=== PATIENT | female | born 1965 | race Caucasian/White ===

== ENCOUNTER → 2023-06-19 10:41 | Outpatient (REF) | payer OTHER, SELFPAY | LOC: HWRAD 10:41 | PROVIDERS: ATTENDING PHYSICIAN Internal Medicine Critical Care Medicine; FAMILY PHYSICIAN Internal Medicine | DX: Z87.891 Personal history of nicotine dependence (principal) | CPT/HCPCS: 71271 ==

== ENCOUNTER → 2023-07-21 11:54 | Outpatient (REF) | payer OTHER, SELFPAY | LOC: HWWDC 11:54 | PROVIDERS: ATTENDING PHYSICIAN Obstetrics & Gynecology; FAMILY PHYSICIAN Internal Medicine | DX: Z12.31 Encounter for screening mammogram for malignant neoplasm of breast (principal) | CPT/HCPCS: 77063; 77067 ==

== ENCOUNTER 2024-03-19 21:29 | Observation (INO) | payer OTHER, SELFPAY ==
[2024-03-19] VITALS (7 sets, daily range): BP systolic 123–175; BP diastolic 53–92; PULSE 64–73; BMI 21.7
--- NOTE | 2024-03-19 15:52 | ED.CVA ---
ED Provider Triage
<Sana Landin PA-C - Last Filed: 03/19/24 16:06>
-
Patient seen by provider in Triage?: Seen in Triage
A medical screening examination has been initiated by a qualified medical provider. Based on the assessment performed at this time, it has been determined that an emergent medical condition may exist and the patient has been informed that further
medical evaluation and possible additional diagnostic testing may be needed.
HPI: This is a medical evaluation conducted in person to initiate diagnostic evaluation and provide initial therapeutics. Please see further documentation by the treating clinician.
GENERAL: Alert , in no apparent distress
ENT: No visible abnormalities
LUNGS: No acute respiratory distress
NEUROLOGICAL: Alert and oriented, very slight flattening of left nasolabial fold on the left and a very subtle droop to the corner of her left mouth, normal sensation, other cranial nerves intact, strength and sensation intact, pronator drift
negative, visual rubio
Normal
SKIN: Skin intact. No visible changes.
MUSCULOSKELETAL: Moving extremities normally
PSYCH: Normal and appropriate interaction.
59 y/o F
h/o HTN
here with sudden episode of severe dizziness, double vision, ataxia, and 'massive headche' while in [employer] 1045 am
continued throughtout the day
went to bed
still had headache yesterday but it was mild
took tyenol
she has no vision changes today;
called her PCP who told her to come in
History of Present Illness
<Sana Landin PA-C - Last Filed: 03/19/24 16:06>
General
Chief Complaint: CVA/TIA Symptoms
Time Seen by Provider: 03/19/24 18:56
<Orlin Rider MD - Last Filed: 03/19/24 20:17>
General
Source: patient
Exam Limitations: none
Nursing documentation reviewed up to this point in time: agreed with
Onset of Stroke Symptoms
Onset of symptoms known: Yes
Date of onset of symptoms: 03/17/24
History of Present Illness
History of Present Illness:
59-year-old female with a past medical history of hypertension, hyperlipidemia, bipolar disorder who presents to the emergency department for evaluation after prolonged episode of dizziness, double vision and gait issues. Patient reports symptoms
started Monday at around 11 AM while she was at [employer]. She says she had sudden onset of diplopia, dizziness, unsteady gait and severe headache. She denies any loss of vision. She did not have any speech disturbance. Denies any weakness or
numbness in extremities. She says symptoms continued for about 6 hours and ultimately resolved in the late afternoon. She says that she called her primary doctor yesterday and she received a return call today saying that she should go immediately
to the ER for assessment. She says that today she feels fine and has no symptoms. There was a question of facial droop in triage patient has not noted facial droop or any other symptoms as above. She denies any chest pain or palpitations at any
point, denies shortness of breath. She denies having had similar symptoms in the past and is quite concerned that they might return in the future because of the severity.
Past History
<Sana Landin PA-C - Last Filed: 03/19/24 16:06>
Past History
ED Past Medical History: HTN, Hypercholesterolemia, Psychiatric (Anxiety, Depression) and Other (Chronic headaches, migraines, hemorrhoids, ovarian cysts, skin cancer, MRSA of the left toe from an infected ingrown toenail, depression)
ED Past Surgical History: (x 2) and Other (dermoid removal, endometrial ablation, hemorrhoidectomy, infected toenail removed)
Patient has exhibited threatening behavior?: No
Social History
Tobacco: Non-smoker
Alcohol: None
Drug: None
Personal:
Living: with family
Employment: Employed
Family History
Family History: Hypertension, CAD and Other (Father with valvular disease)
Review of Systems
<Orlin Gazak, MD - Last Filed: 03/19/24 20:17>
Review of Systems
All Other Systems: ROS reviewed and negative except as documented in HPI and ROS
Constitutional: Denies fever or chills
Respiratory: Denies cough or trouble breathing
Cardiac: Denies chest pain, palpitations or syncope
ABD/GI: Denies abdominal pain, nausea or vomiting
: Denies flank pain
Musculoskeletal: Denies neck pain or back pain
Neurological: Reports dizzy, headache and other (Visual disturbance, gait disturbance); Denies weakness or numbness
Phy Exam
<Orlin Rider MD - Last Filed: 03/19/24 20:17>
Physical Exam
Physical Exam:
General: Awake, alert, oriented x3; no acute distress
Head: Normocephalic, atraumatic
Eyes: Conjunctiva normal, EOMI, pupils equal round and reactive to light bilaterally
Throat: Airway intact, handling secretions
Neck: Trachea midline, supple without meningismus
Lungs: Clear to auscultation bilaterally, no wheezing, rales, rhonchi
Heart: Regular rate and rhythm, no murmurs, gallops, or rubs
Abd: Soft, non distended, nontender
Neuro: Cranial nerves intact 2 through 12, speech fluid with no dysarthria or aphasia, no limb ataxia, motor and sensory intact in all extremities
Extremities: No edema in extremities, equal pulses in all extremities
Scores
<Orlin Rider MD - Last Filed: 03/19/24 20:17>
NIH Stroke Score
Level of Consciousness: 0 - Alert
LOC Questions: 0-Answers both correctly
LOC Commands: 0-Performs both correctly
Best Horizontal Gaze: 0-Normal
Visual Rubio: 0=Normal, no visual loss
Facial Palsy: 0=Normal, symmetrical
Motor - Right Arm: 0=No drift 10 seconds
Motor - Left Arm: 0=No drift 10 seconds
Motor - Right Le-No drift 5 seconds
Motor - Left Le-No drift 5 seconds
Limb Ataxia: 0-Absent
Sensation: 0-Normal
Best Language: 0-No aphasia
Dysarthria: 0-Normal
Extinction and Inattention: 0-No abnormality
Total Score:: 0
Heart Failure Risk
Heart Failure Risk Score: Not Applicable
Heart Score for Chest Pain Patients
STEMI patient?: Not applicable
Withdrawal Assessment of Alcohol
Withdrawal Assessment Completed?: Not applicable
Course
<Sana Landin PA-C - Last Filed: 03/19/24 16:06>
Orders/Labs/Results
Orders:
Orders
03/19/24 15:53
CT Head & Neck Angio W/wo IV Urgent
Comment:
Reason For Exam: sudden double vision, severe headache 2 days ago,
03/19/24 16:06
Electrocardiogram (*1) Urgent
Reason for Study: TIA/Stroke
EKG- Treatment ONCE
03/19/24 16:10
Complete Blood Count/With Diff Urgent
Comprehensive Metabolic Panel Urgent
PTT Urgent
Prothrombin Time Urgent
Valproic Acid Level [Depakane] Urgent
03/19/24 20:11
NEUROLOGY CONSULT Urgent
Consulting Provider: Domonique Porter
Was physician already notified: Yes
Aspirin 325 mg PO NOW STA
Abnormal Lab Results
03/19/24
16:10
RBC 4.06 L 10^6/uL
(4.20-5.40)
Hct 36.7 L %
(37.0-47.0)
Immature Gran % 0.6 H %
(0-0.5)
Sodium 134 L mmol/L
(135-145)
Chloride 96 L mmol/L
(98-107)
BUN 18 H mg/dl
(7-17)
03/19/24 16:10
03/19/24 16:10
Vital Signs
Initial and Last Documented VS:
Initial Vital Signs
Temp Pulse Resp BP Pulse Ox
36.3 C 68 18 175/92 100
03/19/24 15:52 03/19/24 15:52 03/19/24 15:52 03/19/24 15:52 03/19/24 15:52
Last Documented Vital Signs
Temp Pulse Resp BP Pulse Ox
36.3 C 62 16 160/77 100
03/19/24 15:52 03/19/24 19:01 03/19/24 19:59 03/19/24 19:00 03/19/24 19:01
<Orlin Rider MD - Last Filed: 03/19/24 20:17>
Orders/Labs/Results
Orders:
Orders
03/19/24 15:53
CT Head & Neck Angio W/wo IV Urgent
Comment:
Reason For Exam: sudden double vision, severe headache 2 days ago,
03/19/24 16:06
Electrocardiogram (*1) Urgent
Reason for Study: TIA/Stroke
EKG- Treatment ONCE
03/19/24 16:10
Complete Blood Count/With Diff Urgent
Comprehensive Metabolic Panel Urgent
PTT Urgent
Prothrombin Time Urgent
Valproic Acid Level [Depakane] Urgent
03/19/24 20:11
NEUROLOGY CONSULT Urgent
Consulting Provider: Domonique Porter
Was physician already notified: Yes
Aspirin 325 mg PO NOW STA
Abnormal Lab Results
03/19/24
16:10
RBC 4.06 L 10^6/uL
(4.20-5.40)
Hct 36.7 L %
(37.0-47.0)
Immature Gran % 0.6 H %
(0-0.5)
Sodium 134 L mmol/L
(135-145)
Chloride 96 L mmol/L
(98-107)
BUN 18 H mg/dl
(7-17)
03/19/24 16:10
03/19/24 16:10
Vital Signs
Initial and Last Documented VS:
Initial Vital Signs
Temp Pulse Resp BP Pulse Ox
36.3 C 68 18 175/92 100
03/19/24 15:52 03/19/24 15:52 03/19/24 15:52 03/19/24 15:52 03/19/24 15:52
Last Documented Vital Signs
Temp Pulse Resp BP Pulse Ox
36.3 C 62 16 160/77 100
03/19/24 15:52 03/19/24 19:01 03/19/24 19:59 03/19/24 19:00 03/19/24 19:01
<Orlin Rider MD - Last Filed: 03/19/24 20:17>
MDM/Problems Addressed
Differential Diagnosis Includes:
TIA/stroke, peripheral vertigo, migraine
MDM/Problems Addressed:
59-year-old female presents to the ER for assessment after 6-hour episode of double vision associated with gait disturbance, dizziness, headache. She is currently asymptomatic. Hypertensive but otherwise normal vitals. Physical exam as above.
She had labs in triage including a CBC and a CMP which showed no clinically significant abnormalities. She had a CTA head and neck which was negative for any acute abnormalities. Will check an EKG. Suspect this may have been an episode of vertigo
or complex migraine but she certainly has TIA/stroke risk factors. Case discussed with neurology we will treat with aspirin and admit for MRI and observation, neurology consultation. Discussed with hospitalist for admission.
Chronic conditions affecting care:
Hypertension hyperlipidemia increase stroke risk
Acute Exacerbation and/or Progression of Chronic Illness:
Acutely hypertensive, permissive
Acute Exacerbation and/or Progression of Chronic Illness: HTN
<Orlin Rider MD - Last Filed: 03/19/24 20:17>
*Radiology
Radiology exam reviewed: radiology read reviewed
*Pulse Oximetry
Patient hypoxic: no
*Critical Care Note
Total Time (30-74mins, 75-104mins- exclusive of procedures): Not Applicable
Data Reviewed
Source: patient and records
<Orlin Rider MD - Last Filed: 03/19/24 20:17>
Patient Management
Discussion with other providers: Hospitalist (Discussed with hospitalist) and [facility] (Discussed with neurology)
Escalation/DeEscalation of care consider admission/obs:
Admission indicated
ED Attending Note
<Sana Landin PA-C - Last Filed: 03/19/24 16:06>
-
Portions of this chart may have been created with voice recognition software.� Occasional wrong word or��sound alike� substitutions may have occurred due to the inherent limitations of voice recognition software.
Discharge Plan
Departure
Prescriptions:
No Action
cetirizine 10 MG tablet
10 mg PO DAILYPRN PRN (Reason: allergies)
gabapentin [Neurontin] 600 MG tablet
600 mg PO TID
divalproex 500 MG tablet extended release 24 hr
1,500 mg PO HS
oxycodone 10 MG tablet
10 mg PO QIDPRN PRN (Reason: moderate pain)
Patient Comments:
12/15/2020: last filled 12/07/20, 60 tabs for 15 days from [email or web address]
lisinopril 30 MG tablet
30 mg PO DAILY Qty: 30 0RF
Referrals:
Palak Villafana MD [Family Provider] -
Interventions
Interventions:
*Risk Screen - Suicide Last Done: 03/19/24 15:52
*General Assessment Last Done: 03/19/24 15:52
*Neglect/Abuse Screening Last Done: 03/19/24 15:52
*ED COVID-19 Vaccine History Last Done: 03/19/24 18:57
ED- Pulmonary Assessment Last Done: 03/19/24 19:57
ED- Neurological Assessment Last Done: 03/19/24 19:57
ED- Cardiac Assessment Last Done: 03/19/24 19:57
ED Swallowing Screen Last Done: 03/19/24 19:57
Discharge Date and Time
Print Language: FRENCH
[2024-03-19 16:20] LABS: % Basophils 0.6 % (0-2); % Immature Granulocytes 0.6 % (0-0.5); % Monocytes 6.4 % (1.7-9.3); % Neutrophils 48.4 % (42.2-75.2); Absolute Eosinophils 0.1 10^3/uL (0-0.7); Absolute Lymphocytes 3.1 10^3/uL (1.2-3.4); Absolute Monocytes 0.5 10^3/uL (0.1-0.6); Absolute Neutrophils 3.5 10^3/uL (1.4-6.5); Hematocrit 36.7 % (37.0-47.0); Hemoglobin 12.3 g/dL (12.0-16.0); Mean Corp Hgb Conc. 33.5 g/dL (33.0-37.0); Mean Corpuscular Hgb 30.3 pg (27.0-31.0); Mean Corpuscular Volume 90.4 fL (81.0-99.0); Mean Platelet Volume 8.6 fL (7.4-10.4); Nucleated Red Blood Cells % 0 %; Platelet Count 326 10^3/uL (130-400); Red Blood Cell Count 4.06 10^6/uL (4.20-5.40); Red Cell Dist. Width 13.2 % (11.5-14.5); White Blood Cell Count 7.2 10^3/uL (4.8-10.8)
[2024-03-19 16:30] LABS: INR 0.99; PT 13.4 Sec (11.4-14.6)
[2024-03-19 16:31] LABS: APTT 32.9 Sec (23.4-35.0)
[2024-03-19 16:37] LABS: ALT (SGPT) 23 U/L (0-35); AST (SGOT) 27 U/L (14-36); Albumin 4.2 g/dl (3.5-5.0); Alkaline Phosphatase 76 U/L (38-126); Blood Urea Nitrogen 18 mg/dl (7-17); Calcium 9.7 mg/dl (8.4-10.2); Carbon Dioxide 30 mmol/L (22-30); Chloride 96 mmol/L (98-107); Depakane 93.3 ug/ml (50.0-120.0); Glucose 99 mg/dl (70-99); Potassium 4.3 mmol/L (3.5-5.1); Sodium 134 mmol/L (135-145); Total Bilirubin 0.6 mg/dl (0.2-1.3); Total Protein 6.8 g/dl (6.3-8.2); eGFR > 60.00
--- NOTE | 2024-03-19 21:17 | HPS.HSE ---
Family Physician
-
Family Physician: Palak Villafana
Chief Complaint
-
Vision Changes / Ataxia
History of Present Illness
Patient is a 59y F with PMH significant for hypertension, bipolar disorder and migraines who presents to ED complaining of vision changes and poor balance. Patient states that she was feeling well until Monday AM while at [employer]. She stood from
her seat and felt off-balance - having to hold onto the chair in front of her. She also noted horizontal double-vision that persisted throughout the AM. She noted severe headache. Patient states that her symptoms persisted throughout the entire
day on Monday. She felt off-balance any time she was standing. She denies any room spinning sensation. She denies any fall or syncope. She went to bed that evening and woke feeling better on Monday. She still felt somewhat off-balance with
standing / walking. She called her PCP that day and was advised to present to the ED.
Today she has felt back to her normal baseline. She presented to the ED today to follow-up on her PCP recommendations.
She has no complaints at present.
She denies any prior history of similar symptoms.
She denies any recent changes in her med regimen.
No recent symptoms of illness, fevers / chills, cough, N/V/D, etc.
Medical History
Past Medical History
Past Medical History: Reports Other
Additional Past Medical History:
Hypertension
Bipolar Disorder
Migraine Headaches
Desmoid Tumor
Past Surgical History: Reports Other
Additional Past Surgical History:
Dermoid Tumor Resection
MOHS Surgery
Endometrial Ablation
Hemorrhoidectomy
Social History
Tobacco: Former Smoker (Quit smoking 10 years ago.)
Alcohol: None
Drug: None
Family History
Family History: Other (Mother: CHF Family history of strokes.)
Allergies / Home Medications
Allergies reflects when Allergies were last updated in [employer].
Home Medications with original date entered in [facility]
Allergy/Medication List:
Allergies
Allergy/AdvReac Type Severity Reaction Status Date / Time
codeine Allergy Itching Verified 03/19/24 15:52
hydrocodone Allergy Itching Verified 03/19/24 15:52
hydromorphone Allergy Itching Verified 03/19/24 15:52
oxycodone Allergy Itching Verified 03/19/24 15:52
penicillin V Allergy Unknown Verified 03/19/24 15:52
Penicillins Allergy Unknown Verified 03/19/24 15:52
Home Medications
divalproex 500 mg tablet,extended release 24 hr 1,000 mg PO mental health 12/15/20
lisinopril 30 mg tablet 30 mg PO DAILY #30 tabs 12/16/20
atorvastatin 10 mg tablet 10 mg PO HS 03/19/24
bupropion HCl 300 mg 24 hr tablet, extended release 300 mg PO DAILY 03/19/24
propranolol 20 mg tablet 20 mg PO DAILY 03/19/24
ziprasidone HCl 40 mg capsule 40 mg PO DAILY 03/19/24
ziprasidone HCl 40 mg capsule 80 mg PO HS 03/19/24
Review of Systems
-
History Source: Patient
A 12 point ROS was completed and negative except as noted: Yes
Constitutional: Denies Fever or Chills
EENT: Reports Other (Double vision.); Denies Sore Throat
Respiratory: Denies Cough or Trouble Breathing
Cardiac: Denies Chest Pain or Palpitations
Abdomen/GI: Denies Abdominal Pain, Nausea, Vomiting or Diarrhea
: Denies Dysuria or Frequency
Musculoskeletal: Denies Joint Pain or Edema
Neurological: Reports Dizzy, Headache and Other (Ataxia); Denies Weakness or Numbness
Physical Exam
Vital Signs
Vital Signs
Temp Pulse Resp BP Pulse Ox
97.4 F 62 16 160/77 100
03/19/24 15:52 03/19/24 19:01 03/19/24 19:59 03/19/24 19:00 03/19/24 19:01
Physical Exam
General: Other (59y F in no acute distress.)
HEENT: Moist mucous membranes and PERRLA
Respiratory: Clear; No Wheezes, Rales or Rhonchi
Cardiac: S1/S2 and Regular Rhythm; No Murmur
GI: Soft, Non Tender, Non Distended and Normal Bowel Sounds
Musculoskeletal: No Clubbing, No Cyanosis and No Edema
Neuro: AO x 3, Nonfocal/grossly intact and Other (Mild tremor of both upper extremities with [id number] testing. Not ataxia. Patient notes that tremulousness is chronic / unchanged.)
Laboratory Results
-
03/19/24 16:10
03/19/24 16:10
Laboratory Results
PT 13.4 Sec (11.4-14.6) 03/19/24 16:10
INR 0.99 03/19/24 16:10
APTT 32.9 Sec (23.4-35.0) 03/19/24 16:10
Total Bilirubin 0.6 mg/dl (0.2-1.3) 03/19/24 16:10
AST 27 U/L (14-36) 03/19/24 16:10
ALT 23 U/L (0-35) 03/19/24 16:10
Alkaline Phosphatase 76 U/L (38-126) 03/19/24 16:10
Impression/Plan
-
A/P: Patient is a 59y F with PMH significant for hypertension and Bipolar disorder who presents to ED complaining of double-vision and ataxia starting on Monday and now resolved.
Horizontal Diplopia
Ataxia
- Observe overnight for further evaluation and treatment.
- Currently symptom-free.
- DAPT for now. Check lipid panel, A1C, etc.
- MRI in AM.
- Neurology evaluation for additional recommendations.
- PT / OT evaluations.
- Follow for any new / recurrent symptoms.
Benign Hypertension
- Not ideal control. Symptom onset was > 48 hours ago - goal of normotension.
- Continue current med regimen and adjust as needed for improved control.
Bipolar Disorder
- Stable. Continue current psychotropic med regimen without changes / interruptions.
DVT Prophylaxis: SCDs
Code Status: Full
[2024-03-19] MEDS: ASPIRIN 325 MG PO (21:34)
[2024-03-19] MEDS: MELATONIN 5 MG PO (23:55)
[2024-03-19] MEDS: LIPITOR 10 MG PO (23:55)
[2024-03-19] MEDS: DEPAKOTE ER (24 HR RELEASE) 1000 MG PO (23:55)
[2024-03-19] MEDS: GEODON 80 MG PO (23:56)
--- NOTE | 2024-03-20 03:37 | PTCARENOTE ---
Patient arrives from ED on stretcher. Pt able to ambulate into room. Vitals obtained, patient assessed, see flowsheet. Patient oriented to room, call ruelas within reach. no complaints of headache, dizziness, or blurry vision. NIH 0 on admission
[2024-03-20 03:54] VITALS: BP 89/49
[2024-03-20 08:00] VITALS: BP 121/62
[2024-03-20 08:24] LABS: Blood Urea Nitrogen 17 mg/dl (7-17); Calcium 8.9 mg/dl (8.4-10.2); Carbon Dioxide 28 mmol/L (22-30); Chloride 98 mmol/L (98-107); Estimated Creatinine Clearance 69 ml/min; Glucose 82 mg/dl (70-99); HDL Cholesterol 40 mg/dl; LDL Cholesterol, Calculated 43 mg/dl; Potassium 4.3 mmol/L (3.5-5.1); Sodium 134 mmol/L (135-145); Total Cholesterol 105 mg/dl (50-199); Triglyceride 113 mg/dl (10-149); Very Low Density Lipoprotein 22 mg/dl (0-30); eGFR > 60.00
[2024-03-20 08:33] LABS: Hematocrit 31.7 % (37.0-47.0); Hemoglobin 10.7 g/dL (12.0-16.0); Mean Corp Hgb Conc. 33.8 g/dL (33.0-37.0); Mean Corpuscular Hgb 30.6 pg (27.0-31.0); Mean Corpuscular Volume 90.6 fL (81.0-99.0); Mean Platelet Volume 8.8 fL (7.4-10.4); Platelet Count 246 10^3/uL (130-400); Red Cell Dist. Width 13.3 % (11.5-14.5); White Blood Cell Count 5.2 10^3/uL (4.8-10.8)
[2024-03-20 08:36] LABS: TSH Reflex To Free T4 2.54 uIU/ml (0.47-4.68)
[2024-03-20 08:58] LABS: Glycohemoglobin (HgbA1c) 4.9 % (4.0-5.6)
[2024-03-20 10:00] VITALS: BP 112/65; BP 124/69; BP 130/84; PULSE 62; PULSE 67; PULSE 77
[2024-03-20] MEDS: PLAVIX 75 MG PO (10:05)
[2024-03-20] MEDS: LOW STRENGTH ASPIRIN 81 MG PO (10:05)
[2024-03-20] MEDS: INDERAL 20 MG PO (10:05)
[2024-03-20] MEDS: ZESTRIL 30 MG PO (10:06)
[2024-03-20] MEDS: GEODON 40 MG PO (10:08)
[2024-03-20] MEDS: WELLBUTRIN XL (24 hour extended release) 300 MG PO (10:09)
[2024-03-20 10:38] VITALS: BP 130/84; PULSE 77
[2024-03-20 11:00] VITALS: BP 112/65; BP 124/62; BP 125/67; BP 130/84; PULSE 67; PULSE 77; O2SAT 99
[2024-03-20 11:14] LABS: Depakane 85.1 ug/ml (50.0-120.0)
--- NOTE | 2024-03-20 14:55 | W.PN.HOSP.TC ---
Addendum entered and electronically signed by Trina Hawkins MD 03/20/24 15:55:
I saw and evaluated the patient independently. I reviewed the resident�s note and agree with findings and plan as documented by Dr. Valladares.
GENERAL: well developed, well nourished, female in no apparent distress
HEENT: NC/AT -- very subtle nasolabial fold droop (maybe baseline?)
HEART: regular rate and rhythm, +S1, +S2
LUNGS : clear to auscultation bilaterally
ABDOM: soft, nontender, nondistended, + bowel sounds
EXT: no cyanosis, clubbing, or edema
NEUROLOGIC: grossly intact
Horizontal Diplopia/Ataxia--likely TIA--initial head CT scan neg--MRI no acute abnormalities, head/neck CTA without large vessel stenosis--LDL 43--cont asa/plavix--passed PT/OT
Essential Hypertension-- Not ideal control. Symptom onset was > 48 hours ago - goal of normotension-- Continue current med regimen and adjust as needed for improved control-- pt had episode of hypotension x1, asymptomatic and repeat 121/62--split
any BP meds to 2x daily instead of all at one time
Bipolar Disorder - Stable. Continue current psychotropic med regimen without changes / interruptions.
DVT Prophylaxis: SCDs
Code Status: Full
Addendum entered and electronically signed by Karsten Valladares MD, Resident 03/20/24 15:42:
Added Myasthenia gravis panel (AChR abs, MuSK abs, LRP4 abs). Given negative MRI findings, neuro consult not necessary at this time prior to discharge. patient can follow up as out patient. Information will be given in discharge instructions.
Original Note:
Today's Communication/Plan
-
Plan for discharge today pending neuro eval, speech evaluation. D/c home on Aspirin/Plavix x21d and follow up PCP within 1wk.
Assessment / Plan
Assessment / Plan
59 yo F with history of hypertension, bipolar disorder, remote history of migraines (last one 20 years ago) who presented with vision changes and unsteadiness
#TIA
#Vision Changes
#Ataxia
- CT head w/o acute intracranial abnormality (though limited vision of carotids). MRI brain showed chronic small vessel ischemic changes, but no acute intracranial abnormality.
- Symptoms have since resolved and not returned.
- Started on DAPT (Aspirin 81mg/Plavix 75mg). Will continue on DAPT for 21 days, after which she will stop the Plavix and remain on the Aspirin 81mg indefinitely as was explained to her at bedside.
- Pending neuro evaluation
#Hypotension - Acute episode of hypotension (89/49) around 4AM this morning. Pressure subsequently improved to baseline thereafter and no pressors or medication adjustments were required. Orthostatic vitals taken, she is negative for orthostasis
#Essential Hypertension - c/w Lisinopril 30mg. No concern at this time.
#Hyperlipidemia - stable on atorvastatin
#Bipolar disorder - stable on current regimen of psychiatric medication. no changes at this time.
Diet - fulls
DVT PPx - none, ambulatory
Code Status - Full code
Discharge today pending Neuro clearance/Speech evaluation
Anticipated Discharge: Today
Subjective/Interval History
-
Seen in the AM. patient was conversant with no complaints of headache, vision changes, word finding difficulties, confusion, dizziness, or loss of consciousness. She is feeling back to her normal this morning.
Objective Data
-
Labs:
Laboratory Results
03/20/24
06:48
WBC 5.2
Hgb 10.7 L
Hct 31.7 L
Plt Count 246 D
Sodium 134 L
Potassium 4.3
Chloride 98
Carbon Dioxide 28
BUN 17
Creatinine 0.8
Glucose 82
Calcium 8.9
Vital Signs:
Vital Signs
Temp Pulse Resp BP Pulse Ox
97.2 F 63 18 125/67 99
03/20/24 11:00 03/20/24 11:00 03/20/24 11:00 03/20/24 11:00 03/20/24 11:00
I&O
03/19/24 03/20/24 03/21/24
06:59 06:59 06:59
Intake Total 360 / 360
Balance 360 / 360
Review of Systems
-
History Source: Patient
Constitutional: Reports No Symptoms
EENT: Reports No Symptoms Reported
Respiratory: Reports No Symptoms
Cardiac: Reports No Symptoms
Abdomen/GI: Reports No Symptoms
Genitourinary: Reports No Symptoms
Musculoskeletal: Reports No Symptoms
Skin: Reports No Symptoms
Neuro: Reports No Symptoms
Physical Exam
-
General: Well Developed, Well Nourished, No Apparent Distress, Comfortable and Conversant; Negative Slurred Speech
HEENT: Normocephalic, Atraumatic, Moist Mucous Membranes, [place] Conjunctivae, No Ptosis and PERRLA
Respiratory: Clear to Auscultation and Non Labored Respirations; Negative Wheezes, Rales or Rhonchi
Cardiac: Regular Rhythm and S1/S2; Negative Murmur or Rub
Breast: Deferred by me
GI: Soft, Nontender, Nondistended and Normal Bowel Sounds
Musculoskeletal: No Clubbing, No Cyanosis and No Edema
Neuro: Awake, Alert, Oriented, Tremors (Mild tremor which is unchanged from baseline, chronic side effect of depakote) and Other (CN II-XII grossly in tact, motor strength 5/5 in upper and lower extremities BL. Sensation grossly in tact BL. No gait
instability, negative Romberg sign. Slightest asymmetry of the upper lip, unreported by patient, unknown if stable or new. ); Negative Slurred Speech
[2024-03-20 15:00] VITALS: BP 149/78; BP 152/71; BP 159/76; PULSE 63; PULSE 66; PULSE 71
--- NOTE | 2024-03-20 15:48 | W.DCSUMMARY ---
Addendum entered and electronically signed by Trina Hawkins MD 03/20/24 19:01:
Read, reviewed, and agree. See same day progress note for additional details. Time spent coordinating care, DC planning, review of DC plan of care with resident, transition of care, review of records in EMR, med rec, consults, notes, d/w
consultants, nursing, family, and CM = 45 minutes
Original Note:
Discharge Summary
Discharge Data
Date of Admission: 03/19/24
Date of Discharge: 03/20/24
Total time spent discharging patient (in min): 45
-
Pending Results: Yes
Additional Pending Results:
AChR antibodies, MuSK Antibodies, LRP4 antibodies
Hospital Course
Discharging Physician : Dr. Karsten Valladares, Dr. Trina Hawkins
Disposition : Home
Primary care physician : Palak Villafana MD
Principal Discharge diagnosis : TIA
Chronic Discharge diagnosis : Bipolar, Essential Hypertension, Remote history of Migraine
Hospital Course :
Crystal Zepeda came to the [facility] after symptoms of double vision and unsteadiness presented with severe headache the Monday prior to admission. Symptoms had mostly resolved by the time of presentation. A workup for TIA/Stroke was done which included
CBC, CMP, Lipid Panel, TSH, Hemoglobin A1C%, PT-INR. She was started on DAPT. CTA of the head and neck was one which showed no acute intracranial abnormality (report below). MRI was ordered which showed not acute intranial abnormality (report
below). She was monitored with serial neuro checks and vital checks. She experienced an asymptomatic episode of hypotension which corrected without intervention. She was seen and evaluated by speech therapy and by PT/OT who cleared her for
discharge. Mild asymmetry of the L side was noted on exam, though she states she is unaware of any change from baseline. Given symptoms of diplopia, labs were sent out for AChR antibody and MuSK antibody to rule out Myasthenia Gravis. Crystal stated
she could not stay later for these tests to result and so she was deemed safe for discharge and sent home with instructions to follow up with Neurologist Dr. Porter in 2-3 weeks after these tests result. She is to continue on DAPT for a total of 21
days and then was instructed to stop her Plavix and continue on Aspirin 81mg indefinitely. She is to follow up with her PCP in 1 week.
Important imaging findings :
CT Head & Neck Angio W/wo IV
CT of the Head without acute intracranial abnormality.
Overall somewhat limited evaluation of the distal common carotid arteries, carotid bulbs and proximal internal carotid arteries bilaterally due to motion artifact without gross significant atherosclerotic narrowing or erosive findings to suggest
internal carotid artery dissection bilaterally.
Dominant left vertebral artery. No findings to suggest vertebral artery dissection bilaterally.
No findings to suggest significant proximal intracranial arterial stenosis bilaterally.
MR Brain Without Contrast
Axial FLAIR sequence demonstrates mild hyperintensity within the periventricular and deep subcortical white matter, likely related to chronic small vessel ischemic changes. No suspicious abnormal parenchymal signal intensity, mass effect, midline
shift, or extra-axial collection. No hydrocephalus. No abnormal signal on diffusion imaging to suggest acute infarct.
The visualized paranasal sinuses and mastoid air cells are clear.
The vascular structures at the skull base are unremarkable.
Discharge Plan
-
Patient Disposition: Home (Routine Discharge)
Discharge Diagnosis/Procedures: TIA
Condition: Good
Diet: No restrictions
Activity: No restrictions
Driving Restrictions: As prior to admission
Bathing Restrictions: None
Referrals:
Domonique Porter MD [Active] - in two to three weeks
Palak Villafana MD [Family Provider] -
Additional Discharge Medication Instructions: Continue Aspirin & Plavix x21 days, then stop Plavix and continue aspirin indefinitely
Prescriptions:
New
aspirin 81 mg capsule
81 mg PO DAILY 30 Days Qty: 30 2RF
clopidogrel 75 mg tablet
75 mg PO DAILY 20 Days Qty: 20 0RF
Continued
atorvastatin 10 mg Tablet
10 mg PO HS Qty: 0 0RF
divalproex 500 MG tablet extended release 24 hr
1,000 mg PO HS Qty: 0 0RF
lisinopril 30 MG tablet
30 mg PO DAILY Qty: 30 0RF
ziprasidone HCl 40 mg Capsule
40 mg PO DAILY Qty: 0 0RF
ziprasidone HCl 40 mg Capsule
80 mg PO HS Qty: 0 0RF
propranolol 20 mg Tablet
20 mg PO DAILY Qty: 0 0RF
bupropion HCl 300 mg Tablet Extended Release 24 Hr
300 mg PO DAILY Qty: 0 0RF
Discharge Orders:
Discharge Patient (As Directed); Ordered 03/20/24
Ordered By: Karsten Valladares
Discharge Date and Time
Discharge Date/Time: 03/20/24 16:49
Print Language: DIVEHI
--- NOTE | 2024-03-20 15:57 | CM ---
Patient seen at bedside with physicians. Patient states that she lives alone in a 2 story home. Patient is independent of ADL's and IADL's. Patient PCP is Dr. Villafana and she stated that she uses the [facility] in [place] for pharmacy needs. Patient
is OBS and CM completed form and placed on chart. Patient plan is for discharge home and follow up with PCP. CM will continue to follow for discharge planning needs.
Plan; home with follow up with PCP
--- NOTE | 2024-03-20 16:22 | PTOTSP ---
Speech Language Pathology
Pt seen for cognitive-linguistic and speech evaluations. No dysarthria noted with adequate diadochokinetic (DDK) rates. Pt was 100% intelligible in both known and unknown contexts. Cognitive-linguistic status evaluated via the [facility] Cognitive
Assessment (MOCA), version 8.3. Pt with a score of 24/30 where normal range is 26-30. Pt reported she is at baseline, although mild cognitive deficits noted on assessment. Of concern was pt having difficulty placing hands accurately on a clock,
stating she hasn't done this since elementary school, so this would not be abnormal.
Plan is for outpatient neurology follow up. No concerns with pt discharging as planned, but can consider outpatient cognitive tx if deficits noted in home/work environment. ENERGY DIRECTOR to continue to follow as hospitalized.
== END 2024-03-20 16:49 | disposition home or self-care (01) ==
LOC: 1 ACUTE 21:29
PROVIDERS: Physician Assistant; Psychiatry & Neurology Neurology; ADMITTING PHYSICIAN Hospitalist; ATTENDING PHYSICIAN Internal Medicine; EMERGENCY PHYSICIAN Emergency Medicine; FAMILY PHYSICIAN Internal Medicine
DX: G45.9 Transient cerebral ischemic attack, unspecified (principal); R27.0 Ataxia, unspecified; R51.9 Headache, unspecified; H53.2 Diplopia; F41.9 Anxiety disorder, unspecified; I10 Essential (primary) hypertension; E78.00 Pure hypercholesterolemia, unspecified; I67.82 Cerebral ischemia; I95.9 Hypotension, unspecified; F31.9 Bipolar disorder, unspecified; Z85.828 Personal history of other malignant neoplasm of skin; Z87.19 Personal history of other diseases of the digestive system; Z86.14 Personal history of Methicillin resistant Staphylococcus aureus infection; Z82.49 Family history of ischemic heart disease and other diseases of the circulatory system; Z87.891 Personal history of nicotine dependence; Z82.3 Family history of stroke; Z88.5 Allergy status to narcotic agent; Z88.0 Allergy status to penicillin; Z60.2 Problems related to living alone
CPT/HCPCS: 70496; 70498; 70551; 80048; 80053; 80061; 80164; 83036; 84443; 85025; 85027; 85610; 85730; 92523; 93005; 97162; 97165; 99285; G0378; Q9967

== ENCOUNTER → 2024-05-09 14:43 | Outpatient (REF) | payer OTHER, SELFPAY | LOC: HWRAD 14:43 | PROVIDERS: ATTENDING PHYSICIAN Student in an Organized Health Care Education/Training Program; FAMILY PHYSICIAN Internal Medicine | DX: M25.572 Pain in left ankle and joints of left foot (principal) | CPT/HCPCS: 73700 ==

== ENCOUNTER → 2024-06-21 09:28 | Outpatient (REF) | payer OTHER, SELFPAY | LOC: HWRAD 09:28 | PROVIDERS: ATTENDING PHYSICIAN Internal Medicine Critical Care Medicine; FAMILY PHYSICIAN Internal Medicine | DX: Z87.891 Personal history of nicotine dependence (principal) | CPT/HCPCS: 71271 ==

== ENCOUNTER → 2024-07-04 07:58 | Outpatient (REF) | payer OTHER, SELFPAY | LOC: RAD 07:58 | PROVIDERS: ATTENDING PHYSICIAN Psychiatry & Neurology Neurology; FAMILY PHYSICIAN Internal Medicine | DX: G45.9 Transient cerebral ischemic attack, unspecified (principal) | CPT/HCPCS: 93880 ==

== ENCOUNTER → 2024-07-26 09:31 | Outpatient (REF) | payer OTHER, SELFPAY | LOC: HWWDC 09:31 | PROVIDERS: ATTENDING PHYSICIAN Internal Medicine; REFERRING PHYSICIAN Obstetrics & Gynecology | DX: Z12.31 Encounter for screening mammogram for malignant neoplasm of breast (principal) | CPT/HCPCS: 77063; 77067 ==